=== PATIENT | female | born 1955 | race Caucasian/White ===

== ENCOUNTER → 2017-02-19 | Outpatient (CLI) | payer BC | END | disposition home or self-care (01) | DX: R13.11 Dysphagia, oral phase (principal); E04.1 Nontoxic single thyroid nodule | CPT/HCPCS: 92611 GN ==

== ENCOUNTER → 2017-04-27 | Outpatient (CLI) | payer BC ==
[~2017-04-27] VITALS: Ht 160 cm; Wt 64.9 kg
[~2017-04-27] MED LIST: FLUOCINOLONE AC20 ML BOTH EARS; SUPREP BOWEL P354 ML PO; SYNTHROID25 MCG PO
== END | disposition home or self-care (01) ==
LOC: AMB 10:20
PROC: 0DBK8ZX Excision of Ascending Colon, Via Natural or Artificial Opening Endoscopic, Diagnostic (ICD-10-PCS; principal; 2017-04-27)
DX: Z12.11 Encounter for screening for malignant neoplasm of colon (principal); D12.2 Benign neoplasm of ascending colon; K57.30 Diverticulosis of large intestine without perforation or abscess without bleeding; K59.09 Other constipation; R13.10 Dysphagia, unspecified; E03.9 Hypothyroidism, unspecified; Z80.3 Family history of malignant neoplasm of breast; Z82.0 Family history of epilepsy and other diseases of the nervous system; Z83.3 Family history of diabetes mellitus; Z88.0 Allergy status to penicillin; Z88.2 Allergy status to sulfonamides; Z88.1 Allergy status to other antibiotic agents; Z88.8 Allergy status to other drugs, medicaments and biological substances
CPT/HCPCS: 88305; J3010